=== PATIENT | female | born 1975 | race Caucasian/White ===

== ENCOUNTER 2024-05-07 23:51 | Inpatient (IN) | payer OTHER ==
[~2024-05-07] VITALS: Ht 162.6 cm; Wt 72.6 kg
[2024-05-08] VITALS (10 sets, daily range): BP systolic 129–156; BP diastolic 74–91; PULSE 84–98; RESP 18–20; TEMP 98.2–100; O2SAT 96–100
[2024-05-08] MEDS ORDERED: ASPIRIN 81 MG CHEW TAB PO ONE (00:30)
[2024-05-08 00:39] LABS: BASOPHILS % 0.2 % (0.0-1.0); EOSINOPHILS # (AUTO) 0.1 (0.0-0.4); EOSINOPHILS % 0.7 % (0.0-6.0); LYMPHOCYTES % 17.6 % (18.0-39.1); MEAN CORPUSCULAR HEMOGLOBIN 20.1 pg (28-32); MEAN CORPUSCULAR HGB CONC 27.5 g/dL (31-35); MONOCYTES # (AUTO) 0.8 (0.2-0.8); MONOCYTES % 6.7 % (4.4-11.3); NEUTROPHILS # (AUTO) 8.5 (2.1-6.9); PLATELET COUNT 400 x10e3/uL (140-360); RED BLOOD COUNT 3.04 x10e6/uL (3.6-5.1); RED CELL DISTRIBUTION WIDTH 18.6 % (11.7-14.4); WHITE BLOOD COUNT 11.49 x10e3/uL (4.8-10.8)
[2024-05-08] MEDS: SODIUM CHLORIDE 0.9% 1000ML 1,000 ML IV ONE (00:43)
[2024-05-08] MEDS: ACETAMINOPHEN 1000 MG/100 ML IV ONE (00:43)
[2024-05-08] MEDS: KETOROLAC TROMETHAMINE 30 MG/ML VIAL IV STA (00:44)
[2024-05-08 00:46] LABS: INR 0.98; PROTHROMBIN TIME 13.6 seconds (11.9-14.5)
[2024-05-08 00:47] LABS: PARTIAL THROMBOPLASTIN TIME 27.2 seconds (23.8-35.5)
[2024-05-08 00:53] LABS: HEMATOCRIT 22.2 % (34.2-44.1); HEMOGLOBIN 6.1 g/dL (12.0-16.0)
[2024-05-08 00:58] LABS: ALANINE AMINOTRANSFERASE 27 IU/L (0-55); ALBUMIN/GLOBULIN RATIO 1.1 (0.8-2.0); ALKALINE PHOSPHATASE 126 IU/L (40-150); ANION GAP 17.1 mmol/L (8-16); BILIRUBIN,TOTAL 0.5 mg/dL (0.2-1.2); BLOOD UREA NITROGEN 8 mg/dL (7-26); BUN/CREATININE RATIO 11 (6-25); CALCIUM 10.4 mg/dL (8.4-10.2); CARBON DIOXIDE 21 mmol/L (22-29); CHLORIDE 105 mmol/L (98-107); CREATINE KINASE 8 IU/L (29-168); CREATININE, SERUM 0.72 mg/dL (0.57-1.11); EST GLOMERULAR FILTRATION RATE 102 ML/MIN (>=60); GLUCOSE 178 mg/dL (74-118); POTASSIUM 4.1 mmol/L (3.5-5.1); SODIUM 139 mmol/L (136-145); TOTAL PROTEIN 7.8 g/dL (6.5-8.1)
[2024-05-08 01:09] LABS: TROPONIN I < 0.001 ng/mL (0-0.300)
[2024-05-08 01:11] LABS: BILIRUBIN,URINE SMALL (NEGATIVE); CLARITY,URINE SL CLOUDY (CLEAR); COLOR,URINE AMBER (YELLOW); GLUCOSE, URINE NEGATIVE (NEGATIVE); KETONES,URINE NEGATIVE (NEGATIVE); LEUKOCYTE ESTERASE ,URINE NEGATIVE (NEGATIVE); NITRITE,URINE NEGATIVE (NEGATIVE); PH,URINE 6 (5 - 7); PROTEIN,URINE DIPSTICK 2+ (NEGATIVE); URINE UROBILINOGEN 1 mg/dL (0.2 - 1)
[2024-05-08] MEDS: ONDANSETRON HCL INJ 2MG/ML 2ML 2 MG/ML VIAL IV STA (01:11)
[2024-05-08 01:19] LABS: CORONAVIRUS COVID-19 AG NEGATIVE (NEGATIVE); INFLUENZA A AG NEGATIVE (NEGATIVE); INFLUENZA B AG NEGATIVE (NEGATIVE); PREGNANCY TEST, URINE NEGATIVE (NEGATIVE)
[2024-05-08 01:20] LABS: AMPHETAMINES SCREEN,URINE NEGATIVE (NEGATIVE); BENZODIAZEPINES SCREEN,URINE NEGATIVE (NEGATIVE); CANNABINOIDS SCREEN,URINE NEGATIVE (NEGATIVE); COCAINE SCREEN,URINE NEGATIVE (NEGATIVE); METHADONE SCREEN, URINE NEGATIVE (NEGATIVE); OPIATES SCREEN,URINE POSITIVE (NEGATIVE); PHENCYCLIDINE SCREEN,URINE NEGATIVE (NEGATIVE)
[2024-05-08 02:41] LABS: BACTERIA,URINE MANY /HPF; EPITHELIAL CELLS,URINE MODERATE /LPF
[2024-05-08 03:00] LABS: % IRON SATURATION 4 % (15-50); IRON 28 ug/dL (50-170); TOTAL IRON BINDING CAPACITY 731 ug/dL (261-478)
[2024-05-08] MEDS ORDERED: DEXTROSE 50% SYRINGE 50 ML IV PRN (03:00)
[2024-05-08 03:16] LABS: FERRITIN 6.28 ng/mL (4.63-204.00)
[2024-05-08] MEDS: METRONIDAZOLE 500MG/NS 100ML 100 ML IV SCH (03:46)
[2024-05-08] MEDS ORDERED: LISINOPRIL10 MG PO (04:53)
[2024-05-08] MEDS ORDERED: HYDROXYZIN10 MG/5 ML PO (04:55)
[2024-05-08] MEDS ORDERED: BUPROPION HCL100 MG PO (04:56)
[2024-05-08] MEDS ORDERED: SPRINTEC1 EACH (05:00)
[2024-05-08] MEDS ORDERED: ASPIRIN CHEW81 MG PO (05:06)
[2024-05-08] MEDS ORDERED: NAUZENE TABLET1 EACH PO (05:08)
[2024-05-08] MEDS: Morphine 4mg INJECTION 4 MG/ML INJ IV PRN (05:49)
[2024-05-08] MEDS: ONDANSETRON HCL INJ 2MG/ML 2ML 2 MG/ML VIAL IV PRN ×2 (05:49→15:44)
[2024-05-08] MEDS: INSULIN REGULAR, HUMAN 100 UNIT/1 ML SQ SCH (07:30)
[2024-05-08] MEDS: HYDROXYZINE HCL 25 MG TAB PO SCH (09:40)
[2024-05-08] MEDS: BUPROPION HCL 100 MG TAB PO SCH (09:40)
[2024-05-08] MEDS: ACETAMINOPHEN 1000 MG/100 ML IV PRN (09:41)
[2024-05-08] MEDS: SODIUM CHLORIDE 0.9% 250ML 250 ML IV ONE (09:41)
[2024-05-08] MEDS: SODIUM CHLORIDE 0.9% 1000ML 1,000 ML IV SCH (09:42)
[2024-05-08 10:33] LABS: ANISOCYTOSIS SLIGHT; HYPOCHROMASIA SLIGHT; MICROCYTOSIS SLIGHT; PLATELET ESTIMATE ADEQUATE; PLATELET MORPHOLOGY COMMENT NORMAL
[2024-05-08] MEDS: METOCLOPRAMIDE HCL 10 MG/2ML VIAL IV SCH (11:01)
[2024-05-08] MEDS ORDERED: IRON SUCROSE 100 MG in SODIUM CHLORIDE 0.9% 100 ML IV SCH (12:15)
[2024-05-08] MEDS: IRON SUCROSE 100 MG in SODIUM CHLORIDE 0.9% 100 ML IV SCH (21:15)
[2024-05-09] VITALS: BP 154/86; PULSE 79; RESP 18; TEMP 98.2; O2SAT 97
[2024-05-09 04:00] VITALS: BP 161/82; PULSE 79; RESP 18; TEMP 97.5; O2SAT 100
[2024-05-09 06:42] LABS: BASOPHILS % 0.3 % (0.0-1.0); EOSINOPHILS # (AUTO) 0.1 (0.0-0.4); EOSINOPHILS % 1.5 % (0.0-6.0); HEMATOCRIT 26.1 % (34.2-44.1); HEMOGLOBIN 7.8 g/dL (12.0-16.0); LYMPHOCYTES % 30.6 % (18.0-39.1); MEAN CORPUSCULAR HEMOGLOBIN 23.1 pg (28-32); MEAN CORPUSCULAR HGB CONC 29.9 g/dL (31-35); MEAN CORPUSCULAR VOLUME 77.2 fL (81-99); MONOCYTES # (AUTO) 0.4 (0.2-0.8); MONOCYTES % 5.6 % (4.4-11.3); NEUTROPHILS # (AUTO) 4.1 (2.1-6.9); NEUTROPHILS % 61.4 % (38.7-80.0); PLATELET COUNT 280 x10e3/uL (140-360); RED BLOOD COUNT 3.38 x10e6/uL (3.6-5.1); RED CELL DISTRIBUTION WIDTH 18.6 % (11.7-14.4); WHITE BLOOD COUNT 6.64 x10e3/uL (4.8-10.8)
[2024-05-09 07:18] LABS: ALANINE AMINOTRANSFERASE 17 IU/L (0-55); ALBUMIN 3.4 g/dL (3.5-5.0); ALBUMIN/GLOBULIN RATIO 1.1 (0.8-2.0); ALKALINE PHOSPHATASE 92 IU/L (40-150); ANION GAP 11.8 mmol/L (8-16); BILIRUBIN,TOTAL 0.6 mg/dL (0.2-1.2); BLOOD UREA NITROGEN < 5 mg/dL (7-26); CALCIUM 9.6 mg/dL (8.4-10.2); CARBON DIOXIDE 22 mmol/L (22-29); CHLORIDE 109 mmol/L (98-107); CREATININE, SERUM 0.56 mg/dL (0.57-1.11); EST GLOMERULAR FILTRATION RATE 112 ML/MIN (>=60); GLUCOSE 93 mg/dL (74-118); POTASSIUM 3.8 mmol/L (3.5-5.1); SODIUM 139 mmol/L (136-145); TOTAL PROTEIN 6.6 g/dL (6.5-8.1)
[2024-05-09 07:31] LABS: BUN/CREATININE RATIO 9 (6-25)
[2024-05-09] MEDS: SODIUM CHLORIDE 0.9% 250ML 250 ML ONE ×2 (08:01→08:16)
[2024-05-09 08:34] VITALS: BP 153/81; PULSE 81; RESP 20; TEMP 98.2; O2SAT 100
[2024-05-09] MEDS ORDERED: LIPITOR20 MG PO (09:45)
[2024-05-09] MEDS ORDERED: FENOFIBRIC ACI135 MG PO (09:51)
[2024-05-09] MEDS ORDERED: METOPROLOL TART25 MG PO (09:54)
[2024-05-09] MEDS ORDERED: CLOPIDOGREL75 MG PO (09:55)
[2024-05-09] MEDS ORDERED: HYDRALAZINE HCL50 MG PO (09:57)
[2024-05-09] MEDS ORDERED: VALSARTAN80 MG (09:58)
[2024-05-09] MEDS ORDERED: FUROSEMIDE40 MG PO (09:59)
[2024-05-09 12:03] VITALS: BP 140/83; PULSE 86; RESP 20; TEMP 98.3; O2SAT 95
[2024-05-09] MEDS: LISINOPRIL 10 MG TAB PO SCH (12:40)
[2024-05-09] MEDS: SODIUM CHLORIDE 0.9% 250ML 250 ML IV ONE (12:41)
[2024-05-09 16:26] VITALS: BP 151/78; PULSE 78; RESP 20; TEMP 98.1; O2SAT 100
[2024-05-09] MEDS: FUROSEMIDE INJ 10 MG/ML 2 ML VIAL IV ONE (18:02)
[2024-05-09 20:44] VITALS: BP 139/72; PULSE 87; RESP 18; TEMP 98.2; O2SAT 98
[2024-05-10] VITALS (8 sets, daily range): BP systolic 138–156; BP diastolic 66–80; PULSE 71–84; RESP 17–20; TEMP 97.7–98.2; O2SAT 96–100
[2024-05-10 06:37] LABS: BASOPHILS % 0.3 % (0.0-1.0); EOSINOPHILS # (AUTO) 0.3 (0.0-0.4); EOSINOPHILS % 2.8 % (0.0-6.0); HEMATOCRIT 29.4 % (34.2-44.1); HEMOGLOBIN 9.2 g/dL (12.0-16.0); LYMPHOCYTES # (AUTO) 2.2 (1.0-3.2); MEAN CORPUSCULAR HEMOGLOBIN 24.1 pg (28-32); MEAN CORPUSCULAR HGB CONC 31.3 g/dL (31-35); MONOCYTES # (AUTO) 0.5 (0.2-0.8); MONOCYTES % 5.9 % (4.4-11.3); NEUTROPHILS # (AUTO) 5.8 (2.1-6.9); NEUTROPHILS % 65.1 % (38.7-80.0); PLATELET COUNT 238 x10e3/uL (140-360); RED BLOOD COUNT 3.82 x10e6/uL (3.6-5.1); RED CELL DISTRIBUTION WIDTH 19.6 % (11.7-14.4); WHITE BLOOD COUNT 8.87 x10e3/uL (4.8-10.8)
[2024-05-10 07:05] LABS: ANION GAP 14.5 mmol/L (8-16); CALCIUM 9.3 mg/dL (8.4-10.2); CREATININE, SERUM 0.66 mg/dL (0.57-1.11); POTASSIUM 3.5 mmol/L (3.5-5.1)
[2024-05-11 02:46] VITALS: BP 157/78; PULSE 74; RESP 17; TEMP 97.6; O2SAT 96
[2024-05-11 08:44] VITALS: BP 164/80; PULSE 76; RESP 17; TEMP 98.7; O2SAT 96
[2024-05-11 09:53] VITALS: BP 164/80; PULSE 76; RESP 17; TEMP 98.7; O2SAT 96
[2024-05-11 11:46] VITALS: BP 159/84; PULSE 78; RESP 15; TEMP 98.8; O2SAT 97
[2024-05-11 20:00] VITALS: BP 155/104; PULSE 78; RESP 18; TEMP 97.6; O2SAT 100
[2024-05-11 23:34] VITALS: BP 179/93; PULSE 82; RESP 17; TEMP 97.6; O2SAT 97
[2024-05-12] VITALS (7 sets, daily range): BP systolic 154–174; BP diastolic 82–98; PULSE 76–84; RESP 17–18; TEMP 97.3–98; O2SAT 96–98
[2024-05-12] MEDS: BISACODYL 10 MG SUPP PR ONE (00:47)
[2024-05-12] MEDS ORDERED: CITRATE OF MAGNESIA 300ML BOTTLE PO ONE (05:00)
[2024-05-12] MEDS ORDERED: LIDOCAINE HCL 2% LOCAL INJ 5 ML SDV VIAL INJ ONE (11:57)
[2024-05-12] MEDS ORDERED: PROPOFOL IV EMULSION 10 MG/ML 20 ML VIAL ONE ×2 (11:57→11:58)
[2024-05-12] MEDS ORDERED: FENTANYL CITRATE/PF 100MCG/2 ML INJ ONE (12:30)
[2024-05-12] MEDS: CITRATE OF MAGNESIA 300ML BOTTLE PO ONE (20:18)
[2024-05-13 03:27] VITALS: BP 155/79; PULSE 84; RESP 17; TEMP 98; O2SAT 99
[2024-05-13 07:35] VITALS: BP 171/75; PULSE 83; RESP 18; TEMP 97.9; O2SAT 97
[2024-05-13 08:10] LABS: FOLATE 4.1 ng/mL (7.0-15.4)
[2024-05-13 09:54] LABS: BASOPHILS % 0.2 % (0.0-1.0); EOSINOPHILS # (AUTO) 0.3 (0.0-0.4); EOSINOPHILS % 2.9 % (0.0-6.0); HEMOGLOBIN 8.5 g/dL (12.0-16.0); LYMPHOCYTES # (AUTO) 2.2 (1.0-3.2); LYMPHOCYTES % 26.4 % (18.0-39.1); MEAN CORPUSCULAR HEMOGLOBIN 24.4 pg (28-32); MEAN CORPUSCULAR HGB CONC 30.4 g/dL (31-35); MEAN CORPUSCULAR VOLUME 80.2 fL (81-99); MONOCYTES # (AUTO) 0.5 (0.2-0.8); NEUTROPHILS # (AUTO) 5.4 (2.1-6.9); NEUTROPHILS % 63.4 % (38.7-80.0); PLATELET COUNT 221 x10e3/uL (140-360); RED BLOOD COUNT 3.49 x10e6/uL (3.6-5.1); RED CELL DISTRIBUTION WIDTH 23.4 % (11.7-14.4); WHITE BLOOD COUNT 8.48 x10e3/uL (4.8-10.8)
[2024-05-13 10:03] LABS: ANION GAP 15.5 mmol/L (8-16); CALCIUM 9.1 mg/dL (8.4-10.2); CREATININE, SERUM 0.55 mg/dL (0.57-1.11); POTASSIUM 3.5 mmol/L (3.5-5.1)
[2024-05-13] MEDS ORDERED: CYANOCOBALAMIN INJ 1,000 MCG/ML VIAL IM ONE (10:45)
[2024-05-13 11:37] VITALS: BP 173/92; PULSE 83; RESP 19; TEMP 97.9; O2SAT 96
== END 2024-05-13 12:07 | disposition home or self-care (01) | DRG 872 ==
LOC: ER 05-08 00:18 → ERHOLD 05-08 03:02 → MED/SURG3 05-08 03:35 → OBSVTOIN 05-08 08:53
PROVIDERS: ADMIT Internal Medicine; ATTEND Internal Medicine
PROC: 30233N1 Transfusion of Nonautologous Red Blood Cells into Peripheral Vein, Percutaneous Approach (ICD-10-PCS; 2024-05-08)
PROC: 0DB98ZX Excision of Duodenum, Via Natural or Artificial Opening Endoscopic, Diagnostic (ICD-10-PCS; 2024-05-12)
PROC: 0DB68ZX Excision of Stomach, Via Natural or Artificial Opening Endoscopic, Diagnostic (ICD-10-PCS; principal; 2024-05-12 12:43)
PROC: 0DB78ZX Excision of Stomach, Pylorus, Via Natural or Artificial Opening Endoscopic, Diagnostic (ICD-10-PCS; 2024-05-12 12:43)
DX: A41.9 Sepsis, unspecified organism (principal); N39.0 Urinary tract infection, site not specified; E87.20 Acidosis, unspecified; E11.43 Type 2 diabetes mellitus with diabetic autonomic (poly)neuropathy; D25.9 Leiomyoma of uterus, unspecified; D50.0 Iron deficiency anemia secondary to blood loss (chronic); I10 Essential (primary) hypertension; E86.0 Dehydration; K52.9 Noninfective gastroenteritis and colitis, unspecified; K31.84 Gastroparesis; N92.0 Excessive and frequent menstruation with regular cycle; Z11.52 Encounter for screening for COVID-19; E78.5 Hyperlipidemia, unspecified; R06.02 Shortness of breath; K20.90 Esophagitis, unspecified without bleeding; K29.70 Gastritis, unspecified, without bleeding; K31.7 Polyp of stomach and duodenum; J45.909 Unspecified asthma, uncomplicated; F41.9 Anxiety disorder, unspecified; Z90.49 Acquired absence of other specified parts of digestive tract
CPT/HCPCS: 36415; 43239; 43251; 71045; 74177; 80048; 80053; 80307; 81001; 81025; 82550; 82607; 82728; 82746; 82948; 83036; 83540; 83605; 83690; 84466; 84484; 85025; 85610; 85730; 86850; 86900; 86920; 87040; 87086; 88305; 88342; 93005; 93971; 94799; 99284; J1756; J1885; J1940; J2003; J2270; J2405; J2470; J2543; J2765; J3410; J7030; J7050; P9016